=== PATIENT | male | born 1950 | race Caucasian/White ===

== ENCOUNTER 2022-11-25 14:11 | Inpatient (IN) | payer MEDICARE ==
[~2022-11-25] VITALS: Ht 170.2 cm; Wt 54.4 kg
[2022-11-25] MEDS ORDERED: ROSU10TA2 PO (14:28)
[2022-11-25] MEDS ORDERED: IPRA12.9 INH (14:28)
[2022-11-25] MEDS ORDERED: ERGO500040 PO (14:28)
[2022-11-25] MEDS ORDERED: IBUP-1957 PO (14:28)
[2022-11-25] MEDS ORDERED: ALEN70TA80 PO (14:28)
[2022-11-25] MEDS ORDERED: FOLI1TAB27 PO (14:28)
[2022-11-25] MEDS ORDERED: MEGE20TA4 PO (14:28)
[2022-11-25] MEDS ORDERED: RIVA10TA PO (14:28)
[2022-11-25] MEDS ORDERED: METO50TA16 PO (14:28)
[2022-11-25] MEDS ORDERED: MAGN400T30 PO (14:28)
[2022-11-25] MEDS ORDERED: LOSA50TA39 PO (14:28)
[2022-11-25] MEDS ORDERED: TRAM50TA2 PO (14:28)
[2022-11-25] MEDS ORDERED: MELO-107 PO (14:28)
[2022-11-25] MEDS ORDERED: ASPI81TA31 PO (14:28)
[2022-11-25] MEDS ORDERED: LORA0.5T48 PO (14:28)
[2022-11-25 14:48] LABS: ABG BASE EXCESS -2.3 mmol/L; ABG HCO3 21.1 mmol/L; ABG PCO2 32.2 mmHg (35.0-45.0); ABG PH 7.435 (7.350-7.450); ABG PO2 73.4 mmHg (75.0-100.0); ABG SITE LEFT RADIAL; ABG TOTAL HEMOGLOBIN 12.2 G/dL (13.5-18.0); COHb 2.9 % (0.5-1.5); MetHb 0.1 % (0.0-1.5); VENT MODE ROOM AIR
[2022-11-25 14:53] LABS: BASOPHILS # (AUTO) 0.1 K/UL (0.0-0.2); BASOPHILS % (AUTO) 0.7 % (0.0-2.0); EOSINOPHILS % (AUTO) 0.1 % (0.0-7.0); HEMATOCRIT 35.8 % (36.7-47.1); HEMOGLOBIN 12.1 g/dL (12.5-16.3); LYMPHOCYTES # (AUTO) 1.4 K/uL (0.8-4.8); MEAN CORPUSCULAR HEMOGLOBIN 35.1 uug (23.8-33.4); MEAN CORPUSCULAR HGB CONC 34 g/dL (32.5-36.3); MEAN CORPUSCULAR VOLUME 103.6 fL (73.0-96.2); MONOCYTES # (AUTO) 0.9 K/uL (0.1-1.30); MONOCYTES % (AUTO) 10.8 % (0.0-11.0); NEUTROPHILS # (AUTO) 5.9 K/uL (1.8-8.9); NEUTROPHILS % (AUTO) 71.4 % (38.5-71.5); PLATELET COUNT (AUTO) 219 K/uL (152-348); RED BLOOD CELL COUNT(AUTO) 3.45 MIL/uL (4.06-5.63); RED CELL DISTRIBUTION WIDTH 13.8 % (12.1-16.2); WHITE BLOOD COUNT (AUTO) 8.2 K/uL (3.6-10.2)
[2022-11-25 15:13] LABS: DIFFERENTIAL COMMENT 1
[2022-11-25 15:15] LABS: CALCIUM 9.2 mg/dL (8.5-10.1); CARBON DIOXIDE 25 mmol/L (21-32); CHLORIDE 95 mmol/L (98-107); CREATININE 1.2 mg/dL (0.6-1.3); GLUCOSE 102 mg/dL (74-106); POTASSIUM 3.3 mmol/L (3.5-5.1); SODIUM SERUM 135 mmol/L (136-145); UREA NITROGEN, BLOOD 38 mg/dL (7-18)
[2022-11-25 15:28] LABS: ALANINE AMINOTRANSFERASE 76 U/L (16-63); ALBUMIN 3.4 g/dL (3.4-5.0); ALKALINE PHOSPHATASE 80 U/L (50-136); ASPARTATE AMINOTRANSFERASE 103 U/L (15-37); BILIRUBIN,DIRECT 0.5 mg/dL (0.0-0.2); BILIRUBIN,TOTAL 0.8 mg/dL (0.2-1.0); NT-PRO BNP 297 pg/mL (0-125); TOTAL PROTEIN, SERUM 7.7 g/dL (6.4-8.2)
[2022-11-25 20:00] VITALS: BP 153/66; TEMP 97.7; O2SAT 100
[2022-11-25 20:30] VITALS: BP 153/66; TEMP 97.7; O2SAT 100
[2022-11-25] MEDS ORDERED: REMEDY ESSENTIAL ZINC PASTE 113 GM TP PRN (21:00)
[2022-11-25] MEDS ORDERED: ACETAMINOPHEN 325 MG TABLET PO PRN (21:00)
[2022-11-25] MEDS ORDERED: HYDROCODONE/APAP 5-325MG TABLET PO PRN (21:00)
[2022-11-25] MEDS ORDERED: ONDANSETRON 4 MG/2 ML VIAL IV PRN (21:00)
[2022-11-25] MEDS: IV D5 1/2 NS 1000 ML 1,000 ML IV PRN (23:17)
[2022-11-25] MEDS: ZOLPIDEM 5 MG TABLET PO PRN (23:54)
[2022-11-26 00:42] LABS: *BLOOD, URINE 2+ (NEGATIVE); *COLOR,URINE YELLOW (YELLOW); *KETONES,URINE 1+ (NEGATIVE); *PROTEIN,URINE 1+ (NEGATIVE); LEUKOCYTE ESTERASE ,URINE NEGATIVE (NEGATIVE); NITRITE, URINE NEGATIVE (NEGATIVE); UGLUCOSE NEGATIVE (NEGATIVE)
[2022-11-26 00:51] LABS: *BILIRUBIN,URIN 3+ (NEGATIVE)
[2022-11-26 00:52] LABS: *CLARITY,URINE HAZY (CLEAR)
[2022-11-26 01:10] LABS: BACTERIA,URINE FEW /HPF (NONE SEEN); SQUAMOUS EPITHELIAL CELL,UR NONE SEEN /HPF (NONE SEEN)
[2022-11-26 04:00] VITALS: BP 119/55; TEMP 98; O2SAT 97
[2022-11-26] MEDS: PANTOPRAZOLE SODIUM 40 MG TABLET.DR PO SCH (06:09)
[2022-11-26 07:35] LABS: BASOPHILS % (AUTO) 0.6 % (0.0-2.0); EOSINOPHILS % (AUTO) 0.2 % (0.0-7.0); HEMATOCRIT 30.9 % (36.7-47.1); HEMOGLOBIN 10.7 g/dL (12.5-16.3); LYMPHOCYTES # (AUTO) 1.8 K/uL (0.8-4.8); LYMPHOCYTES % (AUTO) 24.7 % (20.5-51.5); MEAN CORPUSCULAR HEMOGLOBIN 36.1 uug (23.8-33.4); MEAN CORPUSCULAR HGB CONC 35 g/dL (32.5-36.3); MEAN CORPUSCULAR VOLUME 104.1 fL (73.0-96.2); MONOCYTES % (AUTO) 13.4 % (0.0-11.0); NEUTROPHILS # (AUTO) 4.5 K/uL (1.8-8.9); NEUTROPHILS % (AUTO) 61.1 % (38.5-71.5); PLATELET COUNT (AUTO) 194 K/uL (152-348); RED BLOOD CELL COUNT(AUTO) 2.97 MIL/uL (4.06-5.63); RED CELL DISTRIBUTION WIDTH 13.7 % (12.1-16.2); WHITE BLOOD COUNT (AUTO) 7.4 K/uL (3.6-10.2)
[2022-11-26 07:49] LABS: DIFFERENTIAL COMMENT 1
[2022-11-26 08:06] LABS: CALCIUM 8.7 mg/dL (8.5-10.1); CARBON DIOXIDE 26 mmol/L (21-32); CHLORIDE 99 mmol/L (98-107); CHOLESTEROL 141 mg/dL (<200); GLUCOSE 127 mg/dL (74-106); HDL CHOLESTEROL 37 mg/dL (40-60); MAGNESIUM 1.6 mg/dL (1.8-2.4); POTASSIUM 3.1 mmol/L (3.5-5.1); SODIUM SERUM 137 mmol/L (136-145); TRIGLYCERIDES 122 MG/DL (30-150); UREA NITROGEN, BLOOD 36 mg/dL (7-18)
[2022-11-26] MEDS: IV D5 1/2 NS 1000 ML 1,000 ML IV PRN (11:01)
[2022-11-26 11:31] VITALS: BP 110/71; TEMP 98.1; O2SAT 100
[2022-11-26] MEDS ORDERED: MAGNESIUM OXIDE 400 MG TABLET PO ONE (12:00)
[2022-11-26] MEDS ORDERED: POTASSIUM CHLORIDE 20 MEQ TAB.PRT.SR PO ONE (12:00)
[2022-11-26 16:30] VITALS: BP 118/61; TEMP 98; O2SAT 100
[2022-11-26 20:00] VITALS: BP 110/56; TEMP 98.3; O2SAT 100
[2022-11-27] MEDS: ZOLPIDEM 5 MG TABLET PO PRN ×2 (00:21→22:01)
[2022-11-27] MEDS: IV D5 1/2 NS 1000 ML 1,000 ML IV PRN ×2 (00:46→17:30)
[2022-11-27 04:00] VITALS: BP 101/60; TEMP 98.7; O2SAT 99
[2022-11-27] MEDS: PANTOPRAZOLE SODIUM 40 MG TABLET.DR PO SCH (06:03)
[2022-11-27 07:33] LABS: BASOPHILS # (AUTO) 0.1 K/UL (0.0-0.2); BASOPHILS % (AUTO) 0.8 % (0.0-2.0); EOSINOPHILS % (AUTO) 0.2 % (0.0-7.0); HEMATOCRIT 30.4 % (36.7-47.1); HEMOGLOBIN 10.5 g/dL (12.5-16.3); LYMPHOCYTES # (AUTO) 1.6 K/uL (0.8-4.8); LYMPHOCYTES % (AUTO) 23.5 % (20.5-51.5); MEAN CORPUSCULAR HEMOGLOBIN 35.7 uug (23.8-33.4); MEAN CORPUSCULAR HGB CONC 35 g/dL (32.5-36.3); MEAN CORPUSCULAR VOLUME 103.6 fL (73.0-96.2); MONOCYTES # (AUTO) 0.9 K/uL (0.1-1.30); MONOCYTES % (AUTO) 13.6 % (0.0-11.0); NEUTROPHILS # (AUTO) 4.3 K/uL (1.8-8.9); NEUTROPHILS % (AUTO) 61.9 % (38.5-71.5); PLATELET COUNT (AUTO) 182 K/uL (152-348); RED BLOOD CELL COUNT(AUTO) 2.93 MIL/uL (4.06-5.63); RED CELL DISTRIBUTION WIDTH 13.3 % (12.1-16.2)
[2022-11-27 07:37] LABS: DIFFERENTIAL COMMENT 1
[2022-11-27 07:54] LABS: ALANINE AMINOTRANSFERASE 48 U/L (16-63); ALBUMIN 2.6 g/dL (3.4-5.0); ALKALINE PHOSPHATASE 69 U/L (50-136); ASPARTATE AMINOTRANSFERASE 48 U/L (15-37); BILIRUBIN,TOTAL 0.5 mg/dL (0.2-1.0); CALCIUM 8.4 mg/dL (8.5-10.1); CARBON DIOXIDE 26 mmol/L (21-32); CHLORIDE 101 mmol/L (98-107); CREATININE 0.8 mg/dL (0.6-1.3); GLUCOSE 130 mg/dL (74-106); LIPASE 100 U/L (73-393); MAGNESIUM 1.4 mg/dL (1.8-2.4); PHOSPHOROUS 1.5 mg/dL (2.5-4.9); POTASSIUM 3.8 mmol/L (3.5-5.1); SODIUM SERUM 135 mmol/L (136-145); TOTAL PROTEIN, SERUM 5.9 g/dL (6.4-8.2); UREA NITROGEN, BLOOD 19 mg/dL (7-18)
[2022-11-27] MEDS: FOLIC ACID 1 MG TABLET PO SCH (08:18)
[2022-11-27] MEDS: MELOXICAM 7.5 MG TABLET PO SCH (08:18)
[2022-11-27] MEDS ORDERED: Medication Not On Formulary EA (Meloxicam 15 MG) PO SCH (09:00)
[2022-11-27] MEDS ORDERED: MAGNESIUM OXIDE 400 MG TABLET PO ONE (09:30)
[2022-11-27] MEDS ORDERED: POTASSIUM PHOSPHATE MM 7.5 MMOL in IV NORMAL SALINE 97.5 ML IV ONE (10:30)
[2022-11-27 11:30] VITALS: BP 107/54; TEMP 98.8; O2SAT 100
[2022-11-27 16:11] VITALS: BP 117/49; TEMP 97.8; O2SAT 100
[2022-11-27 17:21] LABS: IRON, SERUM 32 ug/dL (50-175)
[2022-11-27 17:30] LABS: FERRITIN 294 ng/mL (26-388)
[2022-11-27 21:02] VITALS: BP 125/52; TEMP 98.3; O2SAT 100
[2022-11-28 05:45] VITALS: BP 113/62; TEMP 98.5; O2SAT 100
[2022-11-28] MEDS: PANTOPRAZOLE SODIUM 40 MG TABLET.DR PO SCH (06:05)
[2022-11-28] MEDS: IV D5 1/2 NS 1000 ML 1,000 ML IV PRN (06:15)
[2022-11-28 06:57] LABS: BASOPHILS % (AUTO) 0.4 % (0.0-2.0); EOSINOPHILS % (AUTO) 0.3 % (0.0-7.0); HEMATOCRIT 27.8 % (36.7-47.1); HEMOGLOBIN 9.7 g/dL (12.5-16.3); LYMPHOCYTES # (AUTO) 1.6 K/uL (0.8-4.8); LYMPHOCYTES % (AUTO) 25.2 % (20.5-51.5); MEAN CORPUSCULAR HEMOGLOBIN 35.9 uug (23.8-33.4); MEAN CORPUSCULAR HGB CONC 35 g/dL (32.5-36.3); MEAN CORPUSCULAR VOLUME 103.1 fL (73.0-96.2); MONOCYTES # (AUTO) 0.7 K/uL (0.1-1.30); MONOCYTES % (AUTO) 10.3 % (0.0-11.0); NEUTROPHILS # (AUTO) 4.1 K/uL (1.8-8.9); NEUTROPHILS % (AUTO) 63.8 % (38.5-71.5); PLATELET COUNT (AUTO) 173 K/uL (152-348); RED CELL DISTRIBUTION WIDTH 13.7 % (12.1-16.2); WHITE BLOOD COUNT (AUTO) 6.4 K/uL (3.6-10.2)
[2022-11-28 07:04] LABS: DIFFERENTIAL COMMENT 1
[2022-11-28 07:20] LABS: CARBON DIOXIDE 27 mmol/L (21-32); CHLORIDE 104 mmol/L (98-107); CREATININE 0.8 mg/dL (0.6-1.3); GLUCOSE 125 mg/dL (74-106); POTASSIUM 3.9 mmol/L (3.5-5.1); SODIUM SERUM 138 mmol/L (136-145); UREA NITROGEN, BLOOD 14 mg/dL (7-18)
[2022-11-28 08:00] VITALS: BP 118/59; TEMP 98.6; O2SAT 98
[2022-11-28] MEDS: FOLIC ACID 1 MG TABLET PO SCH ×2 (09:00→16:32)
[2022-11-28] MEDS: MELOXICAM 7.5 MG TABLET PO SCH ×2 (09:00→16:32)
[2022-11-28] MEDS ORDERED: IOHEXOL 300MG/ML 100 ML INFUS..BTL ONE (09:14)
[2022-11-28] MEDS ORDERED: SWABABLE VALVE TRANSFER SET EA MC ONE (09:14)
[2022-11-28] MEDS ORDERED: IV NORMAL SALINE 250 ML IV ONE (09:15)
[2022-11-28 10:07] LABS: CARBOHYDRATE ANTIGEN, 19-9 <2 U/mL (0-35); CARCINOEMBRYONIC AG (CEA) 4.7 ng/mL (0.0-4.7)
[2022-11-28 11:52] VITALS: BP 115/47; TEMP 98.6; O2SAT 99
[2022-11-28 16:03] VITALS: BP 109/67; TEMP 98.6; O2SAT 97
[2022-11-28] MEDS ORDERED: CEFTRIAXONE 1 G VIAL IM SCH (17:15)
[2022-11-28] MEDS: CEFTRIAXONE 1 G in IV DEXTROSE 5% 50 ML IV SCH (19:38)
[2022-11-28 20:00] VITALS: BP 122/47; TEMP 98.2; O2SAT 99
[2022-11-28] MEDS: FERROUS SULFATE 325 MG TABEC PO SCH (20:25)
[2022-11-28] MEDS: ZOLPIDEM 5 MG TABLET PO PRN (22:33)
[2022-11-29] MEDS: IV D5 1/2 NS 1000 ML 1,000 ML IV PRN ×2 (00:50→22:54)
[2022-11-29] MEDS: PANTOPRAZOLE SODIUM 40 MG TABLET.DR PO SCH (06:04)
[2022-11-29 06:26] VITALS: BP 122/58; TEMP 98.7; O2SAT 99
[2022-11-29 06:27] LABS: BASOPHILS % (AUTO) 0.6 % (0.0-2.0); EOSINOPHILS % (AUTO) 0.3 % (0.0-7.0); HEMATOCRIT 29.1 % (36.7-47.1); HEMOGLOBIN 10.1 g/dL (12.5-16.3); LYMPHOCYTES # (AUTO) 1.4 K/uL (0.8-4.8); LYMPHOCYTES % (AUTO) 20.6 % (20.5-51.5); MEAN CORPUSCULAR HEMOGLOBIN 35.5 uug (23.8-33.4); MEAN CORPUSCULAR HGB CONC 35 g/dL (32.5-36.3); MEAN CORPUSCULAR VOLUME 102.7 fL (73.0-96.2); MONOCYTES # (AUTO) 0.6 K/uL (0.1-1.30); MONOCYTES % (AUTO) 8.7 % (0.0-11.0); NEUTROPHILS # (AUTO) 4.8 K/uL (1.8-8.9); NEUTROPHILS % (AUTO) 69.8 % (38.5-71.5); PLATELET COUNT (AUTO) 191 K/uL (152-348); RED BLOOD CELL COUNT(AUTO) 2.84 MIL/uL (4.06-5.63); RED CELL DISTRIBUTION WIDTH 13.7 % (12.1-16.2); WHITE BLOOD COUNT (AUTO) 6.9 K/uL (3.6-10.2)
[2022-11-29 06:36] LABS: DIFFERENTIAL COMMENT 1
[2022-11-29] MEDS: MELOXICAM 7.5 MG TABLET PO SCH (08:13)
[2022-11-29] MEDS: FOLIC ACID 1 MG TABLET PO SCH (08:13)
[2022-11-29] MEDS: FERROUS SULFATE 325 MG TABEC PO SCH ×2 (08:13→20:14)
[2022-11-29 11:27] VITALS: BP 124/59; TEMP 98.5; O2SAT 97
[2022-11-29 12:06] LABS: *IMMUNOGLOBULIN G, SERUM 719 mg/dL (603-1613); IMMUNOGLOBULIN A, SERUM 361 mg/dL (61-437); IMMUNOGLOBULIN M, SERUM 43 mg/dL (15-143)
[2022-11-29] MEDS ORDERED: LIDOCAINE-MPF 2% 5 ML VIAL ONE (12:09)
[2022-11-29] MEDS ORDERED: METOCLOPRAMIDE HCL 10 MG/2 ML VIAL ONE (12:09)
[2022-11-29] MEDS ORDERED: CEFAZOLIN 1 G VIAL ONE (12:09)
[2022-11-29] MEDS ORDERED: ONDANSETRON 4 MG/2 ML VIAL ONE (12:09)
[2022-11-29] MEDS ORDERED: PROPOFOL 200 MG/20 ML BOTTLE ONE (12:09)
[2022-11-29] MEDS ORDERED: ETOMIDATE 20 MG/10 ML VIAL ONE (12:09)
[2022-11-29] MEDS ORDERED: DEXAMETHASONE SOD PHOSPHATE 4 MG INJ ONE (12:09)
[2022-11-29] MEDS ORDERED: KETAMINE HCL 200 MG/20 ML VIAL ONE (12:20)
[2022-11-29] MEDS ORDERED: FENTANYL CITRATE 100 MCG/2 ML AMPUL ONE (12:20)
[2022-11-29] MEDS ORDERED: FAMOTIDINE. 20 MG/2 ML VIAL IV ONE (12:21)
[2022-11-29] MEDS ORDERED: ALBUMIN HUMAN 5% 500 ML ONE (12:21)
[2022-11-29] MEDS ORDERED: ROCURONIUM BROMIDE 50 MG/5 ML VIAL ONE (12:21)
[2022-11-29] MEDS: HYDROCODONE/APAP 10-325 MG TABLET PO PRN (15:51)
[2022-11-29 15:52] VITALS: BP 166/71; TEMP 97.6; O2SAT 97
[2022-11-29] MEDS: CEFTRIAXONE 1 G in IV DEXTROSE 5% 50 ML IV SCH (17:14)
[2022-11-29 20:00] VITALS: BP 191/75; TEMP 98; O2SAT 99
[2022-11-29] MEDS ORDERED: hydrALAZINE HCL 25 MG TABLET PO PRN (20:00)
[2022-11-29] MEDS ORDERED: IPRATROPIUM BROMIDE 0.5 MG/2.5 ML NEBU NEB PRN (20:00)
[2022-11-29] MEDS ORDERED: ALBUTEROL SULFATE 2.5 MG/3 ML NEBU NEB PRN (20:00)
[2022-11-29 21:54] VITALS: BP 130/68
[2022-11-29] MEDS: METOPROLOL TARTRATE 25 MG TABLET PO SCH (21:54)
[2022-11-29] MEDS: ZOLPIDEM 5 MG TABLET PO PRN (22:54)
[2022-11-30 02:06] LABS: FOLATE (FOLIC ACID), SERUM 16.8 ng/mL (>3.0)
[2022-11-30 04:12] VITALS: BP 144/69; TEMP 98; O2SAT 99
[2022-11-30] MEDS: PANTOPRAZOLE SODIUM 40 MG TABLET.DR PO SCH (06:07)
[2022-11-30] MEDS: FERROUS SULFATE 325 MG TABEC PO SCH ×2 (08:02→20:04)
[2022-11-30] MEDS: METOPROLOL TARTRATE 25 MG TABLET PO SCH ×2 (08:02→20:05)
[2022-11-30] MEDS: LORAZEPAM 0.5 MG TABLET PO PRN (08:02)
[2022-11-30] MEDS: FOLIC ACID 1 MG TABLET PO SCH (08:02)
[2022-11-30 12:00] VITALS: BP 131/83; TEMP 98.7; O2SAT 97
[2022-11-30] MEDS: IV D5 1/2 NS 1000 ML 1,000 ML IV PRN (12:22)
[2022-11-30] MEDS: MAGNESIUM HYDROXIDE 30 ML LIQUID UDC PO PRN (14:09)
[2022-11-30] MEDS: HYDROCODONE/APAP 10-325 MG TABLET PO PRN ×2 (14:09→20:05)
[2022-11-30 15:55] VITALS: BP 114/55; TEMP 98.5; O2SAT 97
[2022-11-30] MEDS: CEFTRIAXONE 1 G in IV DEXTROSE 5% 50 ML IV SCH (17:07)
[2022-11-30 20:00] VITALS: BP 155/72; TEMP 98.2; O2SAT 100
[2022-12-01] MEDS: IV D5 1/2 NS 1000 ML 1,000 ML IV PRN ×2 (02:17→16:20)
[2022-12-01 04:00] VITALS: BP 135/69; TEMP 98; O2SAT 99
[2022-12-01] MEDS: MORPHINE SULFATE 2 MG/1 ML DISP.SYRIN IV PRN ×2 (05:25→14:38)
[2022-12-01] MEDS: PANTOPRAZOLE SODIUM 40 MG TABLET.DR PO SCH (06:32)
[2022-12-01 06:39] LABS: BASOPHILS % (AUTO) 0.5 % (0.0-2.0); EOSINOPHILS % (AUTO) 0.2 % (0.0-7.0); HEMATOCRIT 30.6 % (36.7-47.1); HEMOGLOBIN 10.4 g/dL (12.5-16.3); LYMPHOCYTES # (AUTO) 1.4 K/uL (0.8-4.8); MEAN CORPUSCULAR HEMOGLOBIN 35.3 uug (23.8-33.4); MEAN CORPUSCULAR HGB CONC 34 g/dL (32.5-36.3); MEAN CORPUSCULAR VOLUME 103.8 fL (73.0-96.2); MONOCYTES # (AUTO) 0.5 K/uL (0.1-1.30); MONOCYTES % (AUTO) 6.4 % (0.0-11.0); NEUTROPHILS # (AUTO) 6.4 K/uL (1.8-8.9); NEUTROPHILS % (AUTO) 75.9 % (38.5-71.5); PLATELET COUNT (AUTO) 188 K/uL (152-348); RED BLOOD CELL COUNT(AUTO) 2.94 MIL/uL (4.06-5.63); RED CELL DISTRIBUTION WIDTH 13.4 % (12.1-16.2); WHITE BLOOD COUNT (AUTO) 8.5 K/uL (3.6-10.2)
[2022-12-01 07:01] LABS: ALBUMIN 2.5 g/dL (3.4-5.0); BILIRUBIN,TOTAL 0.3 mg/dL (0.2-1.0); CREATININE 0.9 mg/dL (0.6-1.3); DIFFERENTIAL COMMENT 1; MAGNESIUM 1.5 mg/dL (1.8-2.4); PHOSPHOROUS 2.1 mg/dL (2.5-4.9); POTASSIUM 4.1 mmol/L (3.5-5.1); TOTAL PROTEIN, SERUM 5.8 g/dL (6.4-8.2)
[2022-12-01] MEDS: FOLIC ACID 1 MG TABLET PO SCH (08:05)
[2022-12-01] MEDS: FERROUS SULFATE 325 MG TABEC PO SCH ×2 (08:05→20:25)
[2022-12-01] MEDS: METOPROLOL TARTRATE 25 MG TABLET PO SCH ×2 (08:05→20:25)
[2022-12-01 11:37] VITALS: BP 109/52; TEMP 98.5; O2SAT 99
[2022-12-01] MEDS ORDERED: MAGNESIUM OXIDE 400 MG TABLET PO ONE (12:30)
[2022-12-01] MEDS ORDERED: NEUTRA PHOS PACKET PO ONE (15:30)
[2022-12-01 16:08] VITALS: BP 164/67; TEMP 98.1; O2SAT 98
[2022-12-01] MEDS: HYDROCODONE/APAP 10-325 MG TABLET PO PRN (16:23)
[2022-12-01] MEDS: MAGNESIUM HYDROXIDE 30 ML LIQUID UDC PO PRN (16:23)
[2022-12-01] MEDS: CEFTRIAXONE 1 G in IV DEXTROSE 5% 50 ML IV SCH (17:03)
[2022-12-01 20:00] VITALS: BP 120/67; TEMP 97.9; O2SAT 99
[2022-12-01] MEDS: LORAZEPAM 0.5 MG TABLET PO PRN (21:47)
[2022-12-02 06:08] VITALS: BP 143/80; TEMP 97.4; O2SAT 97
[2022-12-02] MEDS: PANTOPRAZOLE SODIUM 40 MG TABLET.DR PO SCH (06:24)
[2022-12-02] MEDS: IV D5 1/2 NS 1000 ML 1,000 ML IV PRN (06:28)
[2022-12-02 06:39] LABS: CARBON DIOXIDE 30 mmol/L (21-32); CHLORIDE 103 mmol/L (98-107); CREATININE 0.8 mg/dL (0.6-1.3); GLUCOSE 114 mg/dL (74-106); MAGNESIUM 1.7 mg/dL (1.8-2.4); PHOSPHOROUS 2.5 mg/dL (2.5-4.9); POTASSIUM 4.1 mmol/L (3.5-5.1); SODIUM SERUM 139 mmol/L (136-145); UREA NITROGEN, BLOOD 7 mg/dL (7-18)
[2022-12-02 06:50] VITALS: TEMP 98.3
[2022-12-02] MEDS: FERROUS SULFATE 325 MG TABEC PO SCH ×2 (09:00→20:32)
[2022-12-02] MEDS: FOLIC ACID 1 MG TABLET PO SCH ×2 (09:00→16:03)
[2022-12-02] MEDS: METOPROLOL TARTRATE 25 MG TABLET PO SCH ×2 (09:03→20:33)
[2022-12-02] MEDS ORDERED: MAGNESIUM OXIDE 400 MG TABLET PO ONE (10:45)
[2022-12-02 11:44] VITALS: BP 152/66; TEMP 98.5; O2SAT 97
[2022-12-02] MEDS ORDERED: MAGNESIUM SULFATE/D5W 100 ML ONE (13:02)
[2022-12-02] MEDS ORDERED: KETAMINE HCL 200 MG/20 ML VIAL ONE (13:03)
[2022-12-02] MEDS ORDERED: FENTANYL CITRATE 100 MCG/2 ML AMPUL ONE (13:03)
[2022-12-02] MEDS ORDERED: ALBUMIN HUMAN 5% 500 ML ONE (13:04)
[2022-12-02] MEDS ORDERED: FAMOTIDINE. 20 MG/2 ML VIAL IV ONE (13:04)
[2022-12-02] MEDS ORDERED: LIDOCAINE-MPF 2% 5 ML VIAL ONE (13:23)
[2022-12-02] MEDS ORDERED: ONDANSETRON 4 MG/2 ML VIAL ONE (13:23)
[2022-12-02] MEDS ORDERED: METOCLOPRAMIDE HCL 10 MG/2 ML VIAL ONE (13:23)
[2022-12-02] MEDS ORDERED: PROPOFOL 200 MG/20 ML BOTTLE ONE (13:23)
[2022-12-02] MEDS ORDERED: DEXAMETHASONE SOD PHOSPHATE 4 MG INJ ONE (13:23)
[2022-12-02] MEDS ORDERED: ETOMIDATE 20 MG/10 ML VIAL ONE (13:23)
[2022-12-02] MEDS ORDERED: CEFAZOLIN 1 G VIAL ONE (13:23)
[2022-12-02 15:59] VITALS: BP 167/86; TEMP 97.6; O2SAT 97
[2022-12-02] MEDS: CEFTRIAXONE 1 G in IV DEXTROSE 5% 50 ML IV SCH (17:41)
[2022-12-02 20:34] VITALS: BP 171/71; TEMP 97.6; O2SAT 98
[2022-12-02] MEDS: HYDROCODONE/APAP 10-325 MG TABLET PO PRN (20:34)
[2022-12-02] MEDS: LORAZEPAM 0.5 MG TABLET PO PRN (22:51)
[2022-12-03] MEDS: IV D5 1/2 NS 1000 ML 1,000 ML IV PRN (00:41)
[2022-12-03 01:26] LABS: *OCCULT BLOOD STOOL NEGATIVE (NEGATIVE)
[2022-12-03] MEDS: HYDROCODONE/APAP 10-325 MG TABLET PO PRN ×2 (03:26→09:21)
[2022-12-03 04:23] VITALS: BP 118/73; TEMP 97.7; O2SAT 98
[2022-12-03] MEDS: PANTOPRAZOLE SODIUM 40 MG TABLET.DR PO SCH (06:01)
[2022-12-03 06:36] LABS: BASOPHILS % (AUTO) 0.4 % (0.0-2.0); EOSINOPHILS % (AUTO) 0.1 % (0.0-7.0); HEMATOCRIT 28.5 % (36.7-47.1); HEMOGLOBIN 9.7 g/dL (12.5-16.3); LYMPHOCYTES # (AUTO) 1.7 K/uL (0.8-4.8); MEAN CORPUSCULAR HEMOGLOBIN 35.1 uug (23.8-33.4); MEAN CORPUSCULAR HGB CONC 34 g/dL (32.5-36.3); MEAN CORPUSCULAR VOLUME 103.2 fL (73.0-96.2); MONOCYTES # (AUTO) 0.6 K/uL (0.1-1.30); MONOCYTES % (AUTO) 6.3 % (0.0-11.0); NEUTROPHILS # (AUTO) 7.8 K/uL (1.8-8.9); NEUTROPHILS % (AUTO) 76.2 % (38.5-71.5); PLATELET COUNT (AUTO) 192 K/uL (152-348); RED BLOOD CELL COUNT(AUTO) 2.76 MIL/uL (4.06-5.63); RED CELL DISTRIBUTION WIDTH 13.3 % (12.1-16.2); WHITE BLOOD COUNT (AUTO) 10.2 K/uL (3.6-10.2)
[2022-12-03 06:54] LABS: DIFFERENTIAL COMMENT 1
[2022-12-03 07:38] LABS: CALCIUM 7.8 mg/dL (8.5-10.1); CARBON DIOXIDE 26 mmol/L (21-32); CHLORIDE 104 mmol/L (98-107); CREATININE 0.9 mg/dL (0.6-1.3); GLUCOSE 128 mg/dL (74-106); MAGNESIUM 1.9 mg/dL (1.8-2.4); POTASSIUM 4.2 mmol/L (3.5-5.1); SODIUM SERUM 138 mmol/L (136-145); UREA NITROGEN, BLOOD 9 mg/dL (7-18)
[2022-12-03] MEDS: METOPROLOL TARTRATE 25 MG TABLET PO SCH (08:01)
[2022-12-03] MEDS: FERROUS SULFATE 325 MG TABEC PO SCH (08:01)
[2022-12-03] MEDS: FOLIC ACID 1 MG TABLET PO SCH (08:02)
[2022-12-03 08:06] LABS: A/G RATIO 1.1 (0.7-1.7); ALBUMIN 2.7 g/dL (2.9-4.4); ALPHA-1-GLOBULIN 0.3 g/dL (0.0-0.4); ALPHA-2-GLOBULIN 0.7 g/dL (0.4-1.0); BETA GLOBULIN 0.9 g/dL (0.7-1.3); GAMMA GLOBULIN 0.7 g/dL (0.4-1.8); GLOBULIN, TOTAL 2.5 g/dL (2.2-3.9); M-SPIKE Not Observed g/dL (Not Observed)
[2022-12-03 11:10] VITALS: BP 116/54; TEMP 98.3; O2SAT 95
== END 2022-12-03 14:30 | DRG 668 ==
LOC: ER 14:11 → MEDSURG3 20:12
PROVIDERS: ATTEND Internal Medicine
PROC: 0TBB8ZZ Excision of Bladder, Via Natural or Artificial Opening Endoscopic (ICD-10-PCS; principal; 2022-11-29)
PROC: 0JBC0ZX Excision of Pelvic Region Subcutaneous Tissue and Fascia, Open Approach, Diagnostic (ICD-10-PCS; 2022-12-02)
DX: C67.4 Malignant neoplasm of posterior wall of bladder (principal); N17.0 Acute kidney failure with tubular necrosis; E44.0 Moderate protein-calorie malnutrition; Z68.1 Body mass index [BMI] 19.9 or less, adult; R62.7 Adult failure to thrive; N32.9 Bladder disorder, unspecified; L73.2 Hidradenitis suppurativa; Z59.02 Unsheltered homelessness; N20.0 Calculus of kidney; J43.9 Emphysema, unspecified; F17.210 Nicotine dependence, cigarettes, uncomplicated; Z98.42 Cataract extraction status, left eye; Z98.41 Cataract extraction status, right eye; F32.A Depression, unspecified; R22.2 Localized swelling, mass and lump, trunk; E87.6 Hypokalemia; E78.5 Hyperlipidemia, unspecified; R74.01 Elevation of levels of liver transaminase levels; F10.21 Alcohol dependence, in remission; D51.9 Vitamin B12 deficiency anemia, unspecified; M81.0 Age-related osteoporosis without current pathological fracture; M19.90 Unspecified osteoarthritis, unspecified site; I13.10 Hypertensive heart and chronic kidney disease without heart failure, with stage 1 through stage 4 chronic kidney disease, or unspecified chronic kidney disease; N18.9 Chronic kidney disease, unspecified; R91.1 Solitary pulmonary nodule; E88.09 Other disorders of plasma-protein metabolism, not elsewhere classified; I25.10 Atherosclerotic heart disease of native coronary artery without angina pectoris; Z20.822 Contact with and (suspected) exposure to COVID-19; Z79.01 Long term (current) use of anticoagulants; L72.3 Sebaceous cyst; K63.9 Disease of intestine, unspecified
CPT/HCPCS: 36415; 36600; 71045; 71250; 71260; 82105; 82378; 82746; 82784; 83550; 83605; 83690; 83735; 84100; 84153; 84155; 84165; 84443; 84484; 85025; 85651; 85730; 86140; 86301; 86334; 87040; 93005; A4649; A4663; C1769; G0378; J0690; J0696; J1100; J2270; J2405; J2765; J3010; J3475; J3490; J7040; J7120; P9045; Q9967